=== PATIENT | male | born 1975 | race Caucasian/White ===

== ENCOUNTER 2021-06-27 15:13 | Emergency (ER) | payer BC, SELFPAY ==
--- NOTE | 2021-06-27 15:18 | ED.GENADUL_ITS ---
Discharge Plan Disposition Patient Disposition: HOME Condition: Improving Discharge Details Clinical Impression: Kidney stone Primary Care Provider: Kalee Frausto ED Provider: Nancy Morris Home Meds and New Rx's Prescriptions: New tamsulosin [Flomax] 0.4 mg capsule 0.4 mg PO DAILY Qty: 7 RF: 0 ondansetron 4 mg tablet,disintegrating 4 mg PO Q6H PRN (Reason: nausea and vomiting) Qty: 7 RF: 0 Continued aspirin 325 mg Tablet 325 mg PO PRN PRNRF: 0 Discharge Instructions Instructions: Oxycodone, Rapid Release (By mouth), Ondansetron (By mouth), Kidney Stones (ED) Additional Instructions: Your imaging is concerning for 4 mm kidney stone. Have discussed, I would like you to encourage water intake. You may use Tylenol and ibuprofen as needed for discomfort. Please take this as directed on the packaging. Your next dose ibuprofen can be taken at 1 AM. If this is unsuccessful at alleviating her discomfort, please augment with the oxycodone you are being sent home with. Please only use 1 tab every 4-6 hours as needed[address] not drive will think medication and do not drink alcohol will take this medication. To assist with passage, please take the Flomax one tablet a day until passage. You took the dosing for today. If you have recurrence of your nausea, you may use one of the Zofran dissolve under your tongue every 6 hours as needed. I would like you to follow-up with urology, below is the number for local urologist please call to schedule follow-up appointment. Please follow-up with primary care for reevaluation next 1 to 2 weeks. If develop fever/chills, increased pain, inability stay hydrated new/worsening symptoms to seek care urgently once again. Stand Alone Forms: Work Release Referrals: Moris Cali MD [ [facility] STAFF PHYSICIAN] - Kalee Frausto [Primary Care Provider] - Discharge Data Discharge Date/Time-TO BE ENTERED AT DEPARTURE: 06/27/21 18:46 Medical Decision Making <ERNST Fregoso - Last Filed: 06/28/21 16:05> This is a 46-year-old gentleman who presents with bilateral lower abdominal pain since Saturday associate with nausea and vomiting. Pain is relieved with lying flat, nothing really makes it worse. He questions if he could have had a kidney stone, noticed fleeting right-sided back pain on Saturday, possibly passed a stone. He states his abdominal pain does not feel like a stone. No bowel movement since Saturday. He does. Slightly uncomfortable and with tachycardia. Plan is to obtain IV access, give IV fluid, Zofran, morphine. Will obtain CBC, CMP, lipase, urinalysis and lactate. Believe obtaining CT imaging with contrast is necessary for further evaluation as this could be fine findings consistent with a small bowel obstruction, diverticulitis, appendicitis, atypical renal stone, etc. Medical Records Medical records reviewed: Yes I reviewed the patient's medical records. <ERNST Hale - Last Filed: 06/27/21 18:34> Care transition myself from Francesco Aguillon PA-C. Please see his initial note regarding history, presentation and exam. In brief, patient is a pleasant 46-year-old gentleman presenting today with chief complaints of abdominal discomfort and no bowel movements in the past 2 days. Patient was diffusely tender on initial exam. No previous abdominal surgeries. At the time I assumed care, labs and imaging pending. Patient has received antiemetic. Labs reviewed. White count of 20.4. Lactate 1.6. Creatinine is elevated at 1.5, I do not have a comparison for baseline. Lipase within normal limits. Patient going for CT abdomen pelvis. FINDINGS: Lungs: There is mild atelectasis within the dependent aspect of the right lower lobe. Liver: Normal. No mass. Gallbladder and bile ducts: Normal. No calcified stones. No ductal dilation. Pancreas: The pancreas is moderately atrophic but appears otherwise unremarkable without focal lesion or evidence of acute inflammation. Spleen: Normal. No splenomegaly. Adrenal glands: Normal. No mass. Kidneys and ureters: There is a 4 x 4 x 4 mm distal right ureteral stone in the right pelvis, as seen on image 798, series 5 and coronal image 97, series 6. There is mild proximal right hydroureter and right hydronephrosis. There is mild fluid stranding around the mid and proximal aspect of the right ureter as well as around the lower pole of the right kidney. There is mild urothelial thickening of the right renal pelvis as well as a portion the proximal right ureter and right renal collecting system, which can reflect urinary tract infection. Stomach and bowel: There are multiple distal colonic diverticula without evidence for acute diverticulitis. There is no evidence of small or large bowel inflammation. There is no evidence for bowel obstruction. Appendix: No evidence of appendicitis. Intraperitoneal space: Unremarkable. No free air. No significant fluid collection. Vasculature: Unremarkable. No abdominal aortic aneurysm. Lymph nodes: Unremarkable. No enlarged lymph nodes. Urinary bladder: No bladder stones are identified. Reproductive: Unremarkable as visualized. Bones/joints: There is multilevel mild degenerative change of the lower thoracic and lower lumbar spine. No acute fractures are identified. Soft tissues: There is a 2.0 x 1.8 cm fat containing umbilical hernia. IMPRESSION: 1. 4 x 4 x 4 mm obstructing distal right ureteral stone in the right pelvis, with associated mild proximal right hydroureter and right hydronephrosis. 2. Mild urothelial thickening of a portion of the right renal pelvis and proximal right ureter, which could reflect urinary tract infection. Recommend clinical correlation. 3. Small fat containing umbilical hernia. Discussed findings with the patient. He has had stones in the past, last was a few years ago. Pain is improved although increased slightly after CT. Will give Ketoralac. Discussed Flomax and will give PO dose. Patients nausea increased prior to getting above medications, will give zofran. Patient feeling significantly better. Feels ready for discharge to home at this time. Have placed patient on referral list for urology for obstructing, noninfected 4 mm right sided ureteral stone. Return precautions were discussed, in particular if he is not able to stay hydrated, had severe uncontrolled pain or evidence of infection. Encourage hydration. We discussed pain management at length. We will send home with Zofran ODT if he has recurrence of his nausea or vomiting. Also sent home with a few oxycodone. Advised that he should only take this as prescribed, not mix with alcohol and not drive will take this medication. All the questions or concerns were addressed and he is agree with this plan. HPI <ERNST Fregoso - Last Filed: 06/28/21 16:05> General Mode of arrival: ambulatory . Date/Time Provider Initiated Documentation: 06/27/21 15:18 . Limitations to Documentation: no limitations . Information obtained by: patient . HPI Narrative: Is a 46-year-old gentleman, denies significant past medical history, reports abdominal pain bilateral lower quadrants, crampy, sharp, currently a 4 out of 10 that has been going on since Saturday. He denies recent travel, bad food exposure or sick contacts. Denies fever, chest pain, shortness of breath, diarrhea, dysuria, hematuria, pain radiating down into his penis, testicles or scrotum. Patient reports the pain began Saturday, has been intermittent since then, feels the best lying flat. He states on Saturday he had fleeting pain on the right lower back, wondered if he potentially passed a kidney stone. Reports a history of uncomplicated kidney stones. Since that time has had no back pain whatsoever but the pain continues in the bilateral lower quadrants. His last bowel movement was Saturday. He denies black tarry stools or bright red blood in the stools but reports that his stools were a darker brown than usual and slightly more firm on Saturday. Denies any abdominal surgeries previously. Take aspirin today but no other medications. Also reports nausea and vomiting. Related Data Home Medications Medication Instructions Recorded Confirmed aspirin 325 mg PO PRN PRN 06/27/21 06/27/21 ondansetron 4 mg PO Q6H PRN #7 tab 06/27/21 tamsulosin [Flomax] 0.4 mg PO DAILY #7 cap 06/27/21 Previous Rx's Medication Instructions Recorded ondansetron 4 mg PO Q6H PRN #7 tab 06/27/21 tamsulosin [Flomax] 0.4 mg PO DAILY #7 cap 06/27/21 Allergies Allergy/AdvReac Type Severity Reaction Status Date / Time No Known Allergies Allergy Unverified 06/27/21 15:30 Review of Systems <ERNST Fregoso - Last Filed: 06/28/21 16:05> Constitutional Constitutional: Denies fatigue and Denies fever(s) Cardiovascular Cardiovascular: Denies chest pain and Denies dyspnea Respiratory Respiratory: Denies cough and Denies dyspnea Gastrointestinal Gastrointestinal: Reports abdominal pain, Denies melena, Denies hematochezia, Reports constipation, Denies diarrhea, Reports nausea and Reports vomiting Genitourinary Genitourinary: Denies hematuria, Denies dysuria, Denies scrotal swelling and Denies testicular pain Musculoskeletal Musculoskeletal: Reports back pain (Resolved) Integumentary/Breasts Skin/Breast: Denies rash Endocrine Endocrine: Denies fatigue PFSH <ERNST Fregoso - Last Filed: 06/28/21 16:05> All Active Problems (Updated 06/27/21 @ 18:30 by ERNST Hale) Kidney stone (Chronic) Social History Smoking/Tobacco Use Status: Never Smoking risk assessment performed?: Yes Alcohol Intake: never Substance use type: does not use Do you feel safe at home: Yes Do you feel safe in your relationship?: Yes Exam <ERNST Fregoso - Last Filed: 06/28/21 16:05> Const General: cooperative, no acute distress and other (Appears slightly uncomfortable) Orientation: alert, awake and oriented x3 HENMT Head: normal to inspection, normocephalic and atraumatic Face and sinus: normal facial exam Mouth: moist mucous membranes Eyes General: appearance normal, both eyes and all related structures Conjunctivae: conjunctivae normal Neck Neck: normal visual inspection, full ROM, trachea midline and supple Resp Effort & Inspection: normal respiratory effort and able to speak in complete sentences Auscultation: clear to auscultation bilaterally Cardio Rate: tachycardic (112) Rhythm: regular rhythm GI Inspection: normal to inspection and obesity Palpation: soft, not firm, no guarding, no pulsatile masses and tender (Diffuse lower quadrants, worse in the left side) with no rebound tenderness Auscultation: other (Decreased bowel sounds bilateral lower quadrant) Back/Spine/Pelvis Back: no CVA tenderness and No back tenderness Skin General skin exam: no rashes or lesions noted Neuro General: patient alert, patient awake, moves all extremities and no focal motor deficits Cognition: normal cognition Speech: speech normal Gait: normal gait Sensory Exam: no sensory deficits noted Psych Appearance: grossly normal Mental Status: mental status grossly normal Sign Out <ERNST Fregoso - Last Filed: 06/28/21 16:05> Sign Out Data: Sign Out Comment: Abdominal pain, nausea, vomiting, no bowel movement since Saturday. Establishing IV access, giving normal saline, Zofran, morphine, obtaining laboratory values and CT imaging of his abdomen and pelvis with contrast Last updated by Dustin Aguillon PA at 06/27/21 15:47
[2021-06-27 15:26] VITALS: BP 174/100; PULSE 117; RESP 18; TEMP 37.2; O2SAT 92
--- NOTE | 2021-06-27 15:45 | DI.CT_ITS ---
Exam(s) CT ABDOMEN PELVIS W EXAM: CT ABDOMEN PELVIS W CLINICAL HISTORY: Low abd pain, n/v/lack of BM. TECHNIQUE: Imaging Protocol: Axial computed tomography images with coronal and sagittal reformatted images were created and reviewed CONTRAST MATERIAL: Intravenous: Omnipaque 100cc Oral: None COMPARISON: No exams were available for comparison FINDINGS: VISUALIZED LUNG BASES: No nodules nor pleural effusions evident. ABDOMEN: There is no ascites. LIVER: There are no focal hepatic lesions evident. Hypodense implying steatosis. GALLBLADDER/BILIARY: No obvious gallbladder pathology. CBD is not dilated. PANCREAS: No evidence of pancreatic mass nor dilatation of the pancreatic duct. SPLEEN: Spleen is not enlarged. No obvious intrasplenic lesions. Splenic and portal veins are paten t. ADRENALS: There are no significant adrenal masses. KIDNEYS:Left kidney unremarkable. Right-sided hydronephrosis and hydroureter which is due to a 4 x 3 millimeter calculus in the right ureter lower pelvic level below the iliac vessels (series 4/image 8 1). In addition to dilatation of the right collecting system there is also stranding around the mid and proximal aspect of the right ureter as well as around lower pole the right kidney and there is ur oepithelial thickening of the right renal pelvis and proximal right ureter noted.. ABDOMINAL AORTA: Abdominal aorta is not enlarged. LYMPH NODES:There is no retroperitoneal nor paraaortic adenopathy. ABDOMINAL WALL: There is an anterior abdominal wall umbilical fat containing hernia. No bowel obstru ction. GI: There is no evidence of bowel obstruction, free air, nor abscess. PELVIS: GI: No evidence of appendicitis.Sigmoid diverticuli. No diverticulitis evident. LYMPH NODES: There is no intrapelvic nor inguinal adenopathy. REPRODUCTIVE: Prostate not enlarged. URINARY BLADDER: No calculi seen within the urinary bladder. Some uniform thickening of the bladder wall is noted. OSSEOUS: No significant osseous lesions. IMPRESSION: 1. The main finding here is a 4 millimeter obstructing calculus in the distal right ureter, above the level of the UVJ. This is associated with mild ipsilateral hydronephrosis and hydroureter. There i s some urothelial thickening in the right renal pelvis and proximal right ureter which may represent urinary tract infection. 2. Small fat containing umbilical hernia. No bowel obstruction evident. RADIATION DOSE DELIVERED: 1,528.71mGy.cm Total DLP DATA REPOSITORY: All CT scans at this facility are submitted to the National Radiology Data Registry (NRDR) Dose Index Registry (DIR) with the [employer] (ACR). RADIATION OPTIMIZATION: All CT scans at this facility use at least one of these dose optimization te chniques: automated exposure control; mA and/or kV adjustment per patient size (includes targeted exa ms where dose is matched to clinical indication); or iterative reconstruction.
[2021-06-27] MEDS: Ondansetron 4 MG/2 ML VIAL IVP ×2 (15:52→17:53)
[2021-06-27] MEDS: Normal Saline 1,000 ML 1000 ML IV (15:52)
[2021-06-27 15:54] LABS: Lactate 1.6 mmol/L (0.6-1.4)
[2021-06-27 15:59] LABS: Abs Immature Grans 0.11 10^3/uL (0.0-0.06); Absolute Basophil Count 0.06 10^3/uL (0.0-0.2); Absolute Lymphocyte Count 1.23 10^3/uL (1.2-3.4); Absolute Neutrophil Count 17.56 10^3/uL (1.2-6.7); Basophils % 0.3; HCT 46.5 % (40.0-50.0); HGB 15.7 g/dL (13.5-17.5); Immature Grans % 0.5; MCH 31.7 pg (27.0-33.0); MCHC 33.8 % (32.0-36.0); MCV 93.9 fL (80-95); MPV 9.5 fL (8.0-11.0); Monocytes % 7.5; Neutrophils % 85.7; Nucleated RBC 0 %; Platelet Count 387 10^3/uL (130-400); RBC 4.95 10^6/uL (4.36-5.78); RDW 12.6 % (11.8-14.1); RDW-SD 43.3 fL; WBC 20.49 10^3/uL (4.4-10.8)
[2021-06-27 16:00] LABS: Absolute Monocyte Count 1.54 10^3/uL (0.1-0.8)
[2021-06-27 16:18] LABS: ALT 44 U/L (16-63); AST 21 U/L (15-37); Albumin 3.7 g/dL (3.4-5.0); Alkaline Phosphatase 100 U/L (46-116); Anion Gap 11.9 mmol/L (3-11); BUN 13 mg/dL (7-18); CO2 25.1 mmol/L (21.0-32.0); CREATININE 1.5 mg/dL (0.70-1.30); Calcium 8.9 mg/dL (8.5-10.1); Chloride 100 mmol/L (98-107); Estimated GFR 49.95 (mL/min/1.73m2); Glucose 148 mg/dL (74-106); Lipase 21 U/L (73-393); Potassium 3.6 mmol/L (3.5-5.1); Sodium 137 mmol/L (136-145); Total Protein 8.1 g/dL (6.4-8.2)
[2021-06-27 16:23] LABS: Diff Comment Agrees w/ Instrument; RBC Morphology Normal
[2021-06-27] MEDS: Omnipaque 350 MG/ML 100 ML BTL IV (16:49)
--- NOTE | 2021-06-27 16:55 | NUR.NOTE ---
Nursing Note: Pt return from CT, reports pain improved to 3/10, cont. to monitor.
[2021-06-27 16:59] VITALS: BP 163/93; PULSE 94; RESP 20; O2SAT 93
--- NOTE | 2021-06-27 17:11 | NUR.NOTE ---
Nursing Note:UA collected & sent to lab, pt spouse at bedside, continue to monitor.
[2021-06-27 17:14] LABS: Bilirubin Negative (Negative); Blood Negative (Negative); Clarity Clear (Clear); Glucose Negative (Negative); Ketones Negative (Negative); Leukocyte Esterase Negative (Negative); Nitrite Negative (Negative); Specific Gravity 1.015 (1.005-1.025); pH 6.5 (5-8)
[2021-06-27 17:27] LABS: Bacteria Negative HPF (Negative); C & S Indicated? No; Crystals Negative HPF (Negative); Epithelial Cells Few HPF (Negative); Mucus Trace (Negative); RBC 0-2 HPF (0-2); WBC 0-2 HPF (0-5)
--- NOTE | 2021-06-27 17:38 | DI.VRAD_ITS ---
PROCEDURE INFORMATION: Exam: CT Abdomen And Pelvis With Contrast Exam date and time: 06/27/2021 3:48 PM Age: 46 years old Clinical indication: Other: Low abd pain, n/v/lack of bm TECHNIQUE: Imaging protocol: Computed tomography of the abdomen and pelvis with contrast. Radiation optimization: All CT scans at this facility use at least one of these dose optimization techniques: automated exposure control; mA and/or kV adjustment per patient size (includes targeted exams where dose is matched to clinical indication); or iterative reconstruction. Contrast material: OMNIPAQUE 350; Contrast volume: 100 ml; Contrast route: INTRAVENOUS (IV); COMPARISON: CR LUMBAR SPINE COMPLETE 12/07/2017 6:30 PM FINDINGS: Lungs: There is mild atelectasis within the dependent aspect of the right lower lobe. Liver: Normal. No mass. Gallbladder and bile ducts: Normal. No calcified stones. No ductal dilation. Pancreas: The pancreas is moderately atrophic but appears otherwise unremarkable without focal lesion or evidence of acute inflammation. Spleen: Normal. No splenomegaly. Adrenal glands: Normal. No mass. Kidneys and ureters: There is a 4 x 4 x 4 mm distal right ureteral stone in the right pelvis, as seen on image 798, series 5 and coronal image 97, series 6. There is mild proximal right hydroureter and right hydronephrosis. There is mild fluid stranding around the mid and proximal aspect of the right ureter as well as around the lower pole of the right kidney. There is mild urothelial thickening of the right renal pelvis as well as a portion the proximal right ureter and right renal collecting system, which can reflect urinary tract infection. Stomach and bowel: There are multiple distal colonic diverticula without evidence for acute diverticulitis. There is no evidence of small or large bowel inflammation. There is no evidence for bowel obstruction. Appendix: No evidence of appendicitis. Intraperitoneal space: Unremarkable. No free air. No significant fluid collection. Vasculature: Unremarkable. No abdominal aortic aneurysm. Lymph nodes: Unremarkable. No enlarged lymph nodes. Urinary bladder: No bladder stones are identified. Reproductive: Unremarkable as visualized. Bones/joints: There is multilevel mild degenerative change of the lower thoracic and lower lumbar spine. No acute fractures are identified. Soft tissues: There is a 2.0 x 1.8 cm fat containing umbilical hernia. IMPRESSION: 1. 4 x 4 x 4 mm obstructing distal right ureteral stone in the right pelvis, with associated mild proximal right hydroureter and right hydronephrosis. 2. Mild urothelial thickening of a portion of the right renal pelvis and proximal right ureter, which could reflect urinary tract infection. Recommend clinical correlation. 3. Small fat containing umbilical hernia. Dictated and Authenticated by: Eduardo Malcolm MD. Ordering:ALBINA Chan MD
[2021-06-27] MEDS: Ketorolac 15 MG/ML VIAL IVP (17:52)
[2021-06-27 18:00] VITALS: BP 161/90; PULSE 93; RESP 20; O2SAT 95
[2021-06-27] MEDS: Tamsulosin 0.4 MG CAPCR PO (18:00)
--- NOTE | 2021-06-27 18:27 | NUR.NOTE ---
referral to urology for kidney stone
== END 2021-06-27 18:46 | disposition home or self-care (01) ==
PROVIDERS: Physician Assistant; Emergency Provider Physician Assistant; PCP Nurse Practitioner Family
DX: N20.0 Calculus of kidney (principal); R10.30 Lower abdominal pain, unspecified; R11.2 Nausea with vomiting, unspecified
CPT/HCPCS: 36415; 80053; 83690; 96361; 96374; 96375; 96376; 99285; 74177; 81003; 81015; 83605; 85025; 99284; J1885; J2405; J3490

== ENCOUNTER 2021-06-29 18:38 | Emergency (ER) | payer BC, SELFPAY ==
[2021-06-29 18:55] VITALS: BP 142/96; PULSE 102; RESP 16; TEMP 37.2; O2SAT 90
--- NOTE | 2021-06-29 19:00 | DI.CT_ITS ---
Exam(s) CT ABDOMEN PELVIS W EXAM: CT ABDOMEN PELVIS W CLINICAL HISTORY: worsening right sided abdominal pain TECHNIQUE: Imaging Protocol: Axial computed tomography images with coronal and sagittal reformatted images were created and reviewed CONTRAST MATERIAL: Intravenous: Omnipaque 350 Contrast volume:100 mL Oral: No COMPARISON: CT CT ABDOMEN PELVIS W from 06/27/2021 FINDINGS: ABDOMEN: Lung Bases: Mild atelectasis in the lung bases. Liver: There is diffuse fatty infiltration of the liver. No measurable mass. Portal, Superior Mesenteric, and Splenic Veins: Unremarkable. Gallbladder and Biliary Tract: No radiodense calculus or dilation. Pancreas: Normal density, no abnormal calcifications or inflammatory process. Spleen: Normal. Adrenals: No masses seen. Kidneys: Normal size, contour and axis. There is again seen a 4 mm stone in the distal right ureter. It appears unchanged in location there is persistent moderate hydronephrosis. There is persistent u rothelial thickening. High-density material seen in the distal right ureter likely reflects excreted contrast. This was not present on the prior examination from 06/27/2016. There is a 2 mm nonobstru cting stone in the lower pole of the right kidney. No masses seen. Abdominal Aorta: Abdominal portion non-dilated. Bowel: No obstruction or bowel wall thickening. Appendix is unremarkable. There are few scattered div erticula in the sigmoid colon, but no evidence of acute diverticulitis. Peritoneal Cavity: No ascites, collection or mesenteric inflammatory response. No free air. Lymph Nodes: Within normal limits. Bones: Within normal limits for the patient's age. Soft Tissues: There is a fat containing umbilical hernia. PELVIS: Bladder: Symmetric distention, no gross wall thickening. Reproductive Organs: Unremarkable as visualized. Lymph Nodes: Within normal limits. Bones: Within normal limits for the patient's age. IMPRESSION: 1. Unchanged position of the 4 mm distal right ureteral stone with moderate hydronephrosis. 2. Urothelial thickening which may reflect infection/inflammation. UTI should be considered. RADIATION DOSE DELIVERED: 1,618.98mGy.cm Total DLP DATA REPOSITORY: All CT scans at this facility are submitted to the National Radiology Data Registry (NRDR) Dose Index Registry (DIR) with the [employer] (ACR). RADIATION OPTIMIZATION: All CT scans at this facility use at least one of these dose optimization te chniques: automated exposure control; mA and/or kV adjustment per patient size (includes targeted exa ms where dose is matched to clinical indication); or iterative reconstruction.
--- NOTE | 2021-06-29 19:01 | ED.GENADUL_ITS ---
Discharge Plan Disposition Patient Disposition: HOME Condition: Improving Discharge Details Clinical Impression: Right ureteral stone Primary Care Provider: Kalee Frausto ED Provider: Ketan Herbert Home Meds and New Rx's Prescriptions: New ketorolac 10 mg tablet 10 mg PO Q6H PRNQty: 12 RF: 0 hydrocodone-acetaminophen 5-300 mg tablet 1 tab PO Q8H PRNQty: 7 RF: 0 Continued aspirin 325 mg Tablet 325 mg PO PRN PRNRF: 0 tamsulosin [Flomax] 0.4 mg capsule 0.4 mg PO DAILY Qty: 7 RF: 0 ondansetron 4 mg tablet,disintegrating 4 mg PO Q6H PRN (Reason: nausea and vomiting) Qty: 7 RF: 0 Discharge Instructions Instructions: Opioid Safety (ED), Ureteral Stones (ED) Additional Instructions: No change in CT scan. Stone is still present. Hydrate and use ketorolac and acetaminophen for pain. Use hydrocodone/acetaminophen for severe pain. Contact urology tomorrow for follow up next week. Return to ED for fever, uncontrolled pain, vomiting, other concerns. Referrals: Moris Cali MD [ [facility] STAFF PHYSICIAN] - Medical Decision Making <Lalo Wu MD - Last Filed: 06/29/21 19:11> 46 yo male comes in with continued right sided pain. He was seen 2 days ago and had a ct showing a 4mm obstructing kidney stone on the right in the distal ureter. HE was discharged but states he has continued having pain. Denies fevers, chills, chest pain, shortness of breath. He is localizing the pain to the right lower abdomen and is very tender with palpation to the right lower abdomen with guarding. He states the pain was more in his back two days ago. I suspect this is still renal colic but given he had a wbc of 20 two days ago and now has rlq tenderness feel he needs repeat CT to evaluate for possible a ppendicitis vs pyelo. Will also repeat cbc, cmp and ua Differential Diagnosis Differential Diagnosis: kidney stone, pyelo Medical Records Medical records reviewed: Yes I reviewed the patient's medical records. <Ketan Herbert MD - Last Filed: 06/29/21 22:58> Patient signed out to me pending repeat CT scan. Patient seen here couple days ago and diagnosed with 4 mm right distal ureteral stone. Patient returns with continued/worsening pain. Laboratory studies show a negative urine and white count has dropped from 20 to 12. Kidney function remained stable. CT scan continues to show 4 mm stone with hydroureter/hydronephrosis essentially unchanged. Patient's pain resolved with IV ketorolac. We will continue patient on Flomax which was started previously. Will give prescriptions for oral ketorolac and oral [place] for pain relief over the weekend. State information sheet on opiate use and informed consent obtained. Refer to neurology early next week if stone does not pass. Return to ED with fever, uncontrolled pain, persistent vomiting, other concerns. Medical Records Medical records reviewed: Yes I reviewed the patient's medical records. Lab Data Lab results reviewed: Yes I reviewed the patient's lab results. HPI <Lalo Wu MD - Last Filed: 06/29/21 19:11> General Mode of arrival: ambulatory . Date/Time Provider Initiated Documentation: 06/29/21 18:40 . Limitations to Documentation: no limitations . Information obtained by: patient . History of Present Illness 46 year old M presents to the emergency department with the chief complaint of right flank pain, described as moderate, Quality is described as stabbing and aching, and is localized to the back. Patient reports no radiation. Patient started experiencing this day(s) (2) and it has been constant. No relieving factors improve symptom(s), No exacerbating factors reported . Related Data Home Medications Medication Instructions Recorded Confirmed aspirin 325 mg PO PRN PRN 06/27/21 06/29/21 ondansetron 4 mg PO Q6H PRN #7 tab 06/27/21 06/29/21 tamsulosin [Flomax] 0.4 mg PO DAILY #7 cap 06/27/21 06/29/21 hydrocodone-acetaminophen 1 tab PO Q8H PRN #7 tab 06/29/21 ketorolac 10 mg PO Q6H PRN #12 tab 06/29/21 Previous Rx's Medication Instructions Recorded ondansetron 4 mg PO Q6H PRN #7 tab 06/27/21 tamsulosin [Flomax] 0.4 mg PO DAILY #7 cap 06/27/21 hydrocodone-acetaminophen 1 tab PO Q8H PRN #7 tab 06/29/21 ketorolac 10 mg PO Q6H PRN #12 tab 06/29/21 Allergies Allergy/AdvReac Type Severity Reaction Status Date / Time No Known Allergies Allergy Unverified 06/29/21 18:58 General Stated Complaint: FlankPain VONNIE: 3 Review of Systems <Lalo Wu MD - Last Filed: 06/29/21 19:11> All systems reviewed & are unremarkable except as noted in HPI and below Constitutional Constitutional: Denies chills, Denies fever(s) and Denies weakness Cardiovascular Cardiovascular: Denies chest pain and Denies dyspnea Respiratory Respiratory: Denies cough and Denies dyspnea Musculoskeletal Musculoskeletal: Denies joint swelling Neurologic Neurologic: Denies weakness PFSH <Lalo Wu MD - Last Filed: 06/29/21 19:11> All Active Problems (Updated 06/29/21 @ 21:29 by Ketan Herbert MD) Kidney stone (Chronic) Right ureteral stone (Acute) Social History Smoking/Tobacco Use Status: Never Smoking risk assessment performed?: Yes Alcohol Intake: never Drug use: Never Substance use type: does not use Do you feel safe at home: Yes Do you feel safe in your relationship?: Yes Exam <Lalo Wu MD - Last Filed: 06/29/21 19:11> Const General: no acute distress Orientation: alert [facility] Head: normal to inspection Ears: external ears normal General nose exam: external nose normal Mouth: moist mucous membranes Eyes General: appearance normal, both eyes and all related structures Neck Neck: normal visual inspection Resp Effort & Inspection: normal respiratory effort and able to speak in complete sentences Cardio Rate: regular rate GI Palpation: soft Skin General skin exam: no rashes or lesions noted Neuro General: patient alert and patient oriented x3 Extrem General: normal to inspection Psych Mental Status: mental status grossly normal Course <Lalo Wu MD - Last Filed: 06/29/21 19:11> Vital Signs Vital signs: Vital Signs Temperature 37.2 C 06/29/21 18:55 Pulse 102 H 06/29/21 18:55 Respiratory Rate 16 06/29/21 18:55 Blood Pressure 142/96 H 06/29/21 18:55 Pulse Oximetry 90 L 06/29/21 18:55 Temperature 37.2 C 06/29/21 18:55 Temperature Source Skin 06/29/21 18:55 Pulse 102 H 06/29/21 18:55 Respiratory Rate 16 06/29/21 18:55 Respiratory Effort Non-Labored 06/29/21 18:59 Blood Pressure 142/96 H 06/29/21 18:55 Blood Pressure Position Sitting 06/29/21 18:55 Pulse Oximetry 90 L 06/29/21 18:55 Oxygen Delivery Method Room Air 06/29/21 18:55 Oxygen Flow Rate 0 06/29/21 18:55 Pain Level 7 06/29/21 18:55 Sign Out <Lalo Wu MD - Last Filed: 06/29/21 19:11> Sign Out Data: Sign Out Comment: CT two days ago showed 4mm distal right ureter stone, still having pain but now is in the right lower abdomen, rescanning, reassessment after analgesia Last updated by Lalo Wu MD at 06/29/21 19:13
[2021-06-29] MEDS: Normal Saline 1,000 ML 1000 ML IV (19:20)
[2021-06-29 19:21] LABS: Abs Immature Grans 0.11 10^3/uL (0.0-0.06); Absolute Basophil Count 0.09 10^3/uL (0.0-0.2); Absolute Eosinophil Count 0.22 10^3/uL (0.0-0.7); Absolute Lymphocyte Count 1.07 10^3/uL (1.2-3.4); Absolute Neutrophil Count 10.09 10^3/uL (1.2-6.7); Basophils % 0.7; Eosinophils % 1.8; HGB 14.4 g/dL (13.5-17.5); Immature Grans % 0.9; Lymphocytes % 8.6; MCH 31.5 pg (27.0-33.0); MCHC 32.7 % (32.0-36.0); MCV 96.3 fL (80-95); MPV 9.6 fL (8.0-11.0); Monocytes % 7.2; Neutrophils % 80.8; Nucleated RBC 0 %; Platelet Count 363 10^3/uL (130-400); RBC 4.57 10^6/uL (4.36-5.78); RDW 12.6 % (11.8-14.1); RDW-SD 44.8 fL; WBC 12.49 10^3/uL (4.4-10.8)
[2021-06-29 19:35] LABS: ALT 69 U/L (16-63); AST 49 U/L (15-37); Albumin 3.1 g/dL (3.4-5.0); Alkaline Phosphatase 128 U/L (46-116); Anion Gap 7.8 mmol/L (3-11); BUN 16 mg/dL (7-18); Bilirubin, Total 0.5 mg/dL (0.2-1.0); CO2 28.2 mmol/L (21.0-32.0); CREATININE 1.5 mg/dL (0.70-1.30); Calcium 9.1 mg/dL (8.5-10.1); Chloride 103 mmol/L (98-107); Estimated GFR 49.95 (mL/min/1.73m2); Glucose 129 mg/dL (74-106); Lipase 33 U/L (73-393); Magnesium 2.5 mg/dL (1.8-2.4); Potassium 3.9 mmol/L (3.5-5.1); Sodium 139 mmol/L (136-145); Total Protein 7.8 g/dL (6.4-8.2)
[2021-06-29] MEDS: Ketorolac 15 MG/ML VIAL IVP (19:40)
[2021-06-29] MEDS: Omnipaque 350 MG/ML 100 ML BTL IJ (19:51)
[2021-06-29 20:07] LABS: Bilirubin Negative (Negative); Blood Negative (Negative); Clarity Clear (Clear); Glucose Negative (Negative); Ketones Negative (Negative); Leukocyte Esterase Negative (Negative); Nitrite Negative (Negative); Specific Gravity 1.025 (1.005-1.025); Urobilinogen 0.2 EU/dL (Up TO 0.2); pH 5.5 (5-8)
--- NOTE | 2021-06-29 21:14 | DI.VRAD_ITS ---
PROCEDURE INFORMATION: Exam: CT Abdomen And Pelvis With Contrast Exam date and time: 06/29/2021 7:12 PM Age: 46 years old Clinical indication: Other: RT sided pain TECHNIQUE: Imaging protocol: Computed tomography of the abdomen and pelvis with contrast. COMPARISON: CT ABDOMEN PELVIS W 06/27/2021 4:48 PM FINDINGS: Liver: Normal. No mass. Gallbladder and bile ducts: Normal. No calcified stones. No ductal dilation. Pancreas: Normal. No ductal dilation. Spleen: Normal. No splenomegaly. Adrenal glands: Normal. No mass. Kidneys and ureters: Left kidney appears normal. Moderate right hydronephrosis again seen as well as surrounding stranding. Mild right hydroureter is well. Urothelial thickening also noted. There is high-density material in the distal right ureter that is favored to represent excreted contrast and was not present on recent comparison. The previously seen distal right ureteral stone remains present it again measures about 4 mm. Stomach and bowel: Unremarkable. No obstruction. No mucosal thickening. Appendix: No evidence of appendicitis. Intraperitoneal space: Unremarkable. No free air. No significant fluid collection. Vasculature: Unremarkable. No abdominal aortic aneurysm. Lymph nodes: Unremarkable. No enlarged lymph nodes. Urinary bladder: Unremarkable as visualized. Reproductive: Unremarkable as visualized. Bones/joints: Unremarkable. No acute fracture. Soft tissues: Unremarkable. IMPRESSION: Persistent moderate right hydronephrosis and evidence of UTI due to in unchanged distal right ureteral stone measuring about 4 mm. Dictated and Authenticated by: Eduin Dolan MD. Ordering:UTE May MD
== END 2021-06-29 21:44 | disposition home or self-care (01) ==
PROVIDERS: Emergency Medicine; Emergency Provider Emergency Medicine; PCP Nurse Practitioner Family
DX: N20.1 Calculus of ureter (principal)
CPT/HCPCS: 36415; 80053; 83690; 96361; 96374; 99285; 74177; 81003; 83735; 85025; 99284; J1885; J3490

== ENCOUNTER 2021-07-03 13:34 | Outpatient (REF) | payer BC, SELFPAY ==
[2021-07-03 11:57] LABS: Source Nasal/Nares
[2021-07-03 18:38] LABS: COVID-19 PCR Negative (Negative)
== END 2021-07-03 13:35 | disposition home or self-care (01) ==
LOC: LBN 13:34
PROVIDERS: PCP Nurse Practitioner Family; Visit Provider Urology
DX: Z20.822 Contact with and (suspected) exposure to COVID-19 (principal); Z01.818 Encounter for other preprocedural examination
CPT/HCPCS: 87635

== ENCOUNTER 2021-07-06 06:12 | Day surgery (SDC) | payer BC, SELFPAY ==
[2021-07-06] VITALS (8 sets, daily range): BP systolic 125–150; BP diastolic 72–96; PULSE 70–81; RESP 13–20; TEMP 36.1–37; O2SAT 93–97; BMI 40.4
--- NOTE | 2021-07-06 06:54 | HPE_ITS ---
Date of service: 07/06/21 Time of Service: 06:54 Assessment and Plan Assessment and plan (1) Right ureteral stone: Status: Acute Assessment and plan: With his stone not progressing, we will move ahead w ith ureteroscopy and stone manipulation. We discussed potential side effects including bleeding, infections and the inability to access his stone requiring a stent and return to the operating room for a staged procedure. We also discussed the possibility of a postoperative stent if we identify a ureteral injury or expect ureteral edema from the manipulation. History of Present Illness History of Present Illness Chief Complaint: right ureteral stone Narrative: This is a 46-year-old gentleman who has a history of kidney stones dating back at least 15 years. He has passed each of his previous stones and has never required surgery. He did have one of his stones analyzed, but he was never told the results so we are unsure of the stones chemical composition. He presented to the emergency room about a week ago with right lower abdominal pain. Pain was associated with nausea and vomiting. His presentation was similar to his previous stone episodes. He was not having any fever or chills. He had no gross hematuria. He was seen in the emergency room found to have a 4 mm right distal ureteral stone. He was discharged with analgesics and alpha blockers. He returned to the emergency room 2 days later with increased discomfort. The scan was repeated and the stone had not changed in position. He continues to be uncomfortable but not acutely ill. He is not having fevers or chills. He is nauseated and has not been eating well. He is not sleeping well because of the discomfort. He has no known metabolic abnormalities. He is not on frequent blood thinners. He has had no issues with anesthesia in the past. Review of Systems Narrative: No fevers or chills No vision change or dysphasia No diabetes or thyroid dysfunction Snores. No shortness of breath, cough or hemoptysis No chest pain or palpitations No nausea, vomiting, hepatitis, ulcers, jaundice, diarrhea or constipation No seizures, strokes or peripheral neuropathy No bleeding disorders or anemia No gout PFSH All Active Problems Kidney stone (Chronic) Right ureteral stone (Acute) Surgical History Hx of elbow surgery Social History Smoking/Tobacco Use Status: Never Smoking risk assessment performed?: Yes Alcohol Intake: never Drug use: Never Substance use type: does not use Do you feel safe at home: Yes Do you feel safe in your relationship?: Yes Additional Social history: Pt in room. Meds Allergies and Home Medications Allergies Allergy/AdvReac Type Severity Reaction Status Date / Time No Known Allergies Allergy Unverified 07/06/21 06:15 Home Medications Medication Instructions Recorded Confirmed Type ondansetron 4 mg PO Q6H PRN #7 tab 06/27/21 07/06/21 Rx hydrocodone-acetaminophen 1 tab PO Q8H PRN #7 tab 06/29/21 07/06/21 Rx ketorolac 10 mg PO Q6H PRN #12 tab 06/29/21 07/06/21 Rx tamsulosin 0.4 mg capsule 0.4 mg PO DAILY #7 cap 07/03/21 07/06/21 Rx ibuprofen [IBU] 400 mg PO Q6H PRN 07/06/21 07/06/21 History Exam Const General: cooperative Neck Neck: supple Resp Effort & Inspection: normal respiratory effort Auscultation: clear to auscultation bilaterally Cardio Rate: regular rate Rhythm: regular rhythm GI Palpation: soft and no masses Neuro General: patient alert, patient awake and patient oriented x3 Results Last Vital Signs Temp 37 C 07/06/21 06:21 Pulse 77 07/06/21 06:21 Resp 20 07/06/21 06:21 BP 150/92 H 07/06/21 06:21 Pulse Ox 96 07/06/21 06:21
[2021-07-06] MEDS: Lactated Ringers 1,000 ML 80 ML IV (07:04)
--- NOTE | 2021-07-06 07:14 | ANES.PREOP_ITS ---
General Info Date of Service Date Performed: 07/06/21 Height: 5 ft 9 in Weight: 124.1 kg Body Mass Index (BMI): 40.4 Surgical Procedure: Operation Date: 07/06/21 07:40 Proposed Procedures Side Surgeon p Cystoscopy/Laser/Retrograde/Ureteroscopy/Poss. Stent Right Moris Cali MD Meds Allergies and Home Medications Allergies Allergy/AdvReac Type Severity Reaction Status Date / Time No Known Allergies Allergy Unverified 07/06/21 06:15 Home Medication Medication Instructions Recorded ondansetron 4 mg PO Q6H PRN #7 tab 06/27/21 hydrocodone-acetaminophen 1 tab PO Q8H PRN #7 tab 06/29/21 ketorolac 10 mg PO Q6H PRN #12 tab 06/29/21 tamsulosin 0.4 mg capsule 0.4 mg PO DAILY #7 cap 07/03/21 ibuprofen [IBU] 400 mg PO Q6H PRN 07/06/21 Current Visit Medications: Current Medications Generic Name Dose Route Start Last Admin Trade Name Freq PRN Reason Stop Dose Admin Ringer's Solution 1,000 mls @ 80 mls/hr 07/06/21 06:00 07/06/21 07:04 IV 08/04/21 23:59 80 mls/hr INFUSION JAYME Administration Cefazolin Sodium 3,000 mg/ 100 mls @ 200 mls/hr 07/06/21 06:00 Sodium Chloride IVPB 07/06/21 16:00 PREOP JAYME IV Miscellaneous Supplies 1 each 07/06/21 06:00 Iv Access IV 08/04/21 23:59 DIRECTED JAYME Sodium Chloride 0 ml 07/06/21 06:00 Normal Saline Flush 10 Ml Syr IV 08/04/21 23:59 PRN PRN Sodium Chloride 0 ml 07/06/21 06:00 Normal Saline 10 Ml Vial IJ 08/04/21 23:59 DIRECTED PRN Sterile Water 0 ml 07/06/21 06:00 Water,Injection,Sterile 10 Ml Vial IJ 08/04/21 23:59 DIRECTED PRN PFSH Active Problems Active Problems: Problem Status Onset Code Kidney stone N20.0 Right ureteral stone N20.1 Surgical History Surgical History Hx of elbow surgery Tobacco Smoking/Tobacco Use Status: Never Alcohol Alcohol Intake: never Substance Use Substance use: Never Substance use type: does not use Vital Signs and Lab Results Vital Signs Most Recent Vital Signs in EMR: Most Recent Vital Signs Temp Pulse Resp BP Pulse Ox 37 C 77 20 150/92 H 96 07/06/21 06:21 07/06/21 06:21 07/06/21 06:21 07/06/21 06:21 07/06/21 06:21 Lab Results Blood Type / Crossmatch: No Data to Display Complete Blood Count: White Blood Count 12.49 10^3/uL (4.4-10.8) H 06/29/21 19:15 06/29/21 Red Blood Count 4.57 10^6/uL (4.36-5.78) 06/29/21 19:15 06/29/21 Hemoglobin 14.4 g/dL (13.5-17.5) 06/29/21 19:15 06/29/21 Hematocrit 44.0 % (40.0-50.0) 06/29/21 19:15 06/29/21 Platelet Count 363 10^3/uL (130-400) 06/29/21 19:15 06/29/21 Venous Blood Lactate 1.6 mmol/L (0.6-1.4) H 06/27/21 15:45 06/27/21 Complete Metabolic Panel: 2 Sodium Level 139 mmol/L (136-145) 06/29/21 19:15 06/29/21 Potassium Level 3.9 mmol/L (3.5-5.1) 06/29/21 19:15 06/29/21 Chloride Level 103 mmol/L (98-107) 06/29/21 19:15 06/29/21 Carbon Dioxide Level 28.2 mmol/L (21.0-32.0) 06/29/21 19:15 06/29/21 Blood Urea Nitrogen 16 mg/dL (7-18) 06/29/21 19:15 06/29/21 Creatinine 1.5 mg/dL (0.70-1.30) H 06/29/21 19:15 06/29/21 Estimated GFR/1.73 m2 49.95 (mL/min/1.73m2) 06/29/21 19:15 06/29/21 Magnesium Level 2.5 mg/dL (1.8-2.4) H 06/29/21 19:15 06/29/21 Calcium Level 9.1 mg/dL (8.5-10.1) 06/29/21 19:15 06/29/21 Albumin 3.1 g/dL (3.4-5.0) L 06/29/21 19:15 06/29/21 Glucose Level 129 mg/dL (74-106) H 06/29/21 19:15 06/29/21 Liver Function Panel: Alanine Aminotransferase (ALT/SGPT) 69 U/L (16-63) H 06/29/21 19:15 06/29/21 Aspartate Amino Transf (AST/SGOT) 49 U/L (15-37) H 06/29/21 19:15 06/29/21 Coagulation Panel: No Data to Display Cardiac Panel: No Data to Display Arterial Blood Gas: No Data to Display Venous Blood Gas: No Data to Display Pancreas Panel: Lipase 33 U/L (73-393) 06/29/21 19:15 06/29/21 Thyroid Panel: No Data to Display Infectious Disease: Coronavirus (COVID-19)(PCR) Negative (Negative) 07/03/21 10:30 07/03/21 Coronavirus 2019 Source Nasal/Nares 07/03/21 10:30 07/03/21 Blood Cultures: No Data to Display Toxicology Panel: No Data to Display Anesthesia Assessment and Plan Anesthesia History Personal History: No History of Anesthesia Complications Family History: No Family History of Anesthesia Complications Exercise Tolerance Exercise Tolerance: Metabolic Equivalents>4 Pertinent Negatives Pertinent Negatives: No Symptoms of GERD, No Major Cardiovascular Symptoms or Complaints, No Major Pulmonary Symptoms or Complaints and No History of CVA/TIA Cardiac & Pulmonary Exam Cardiac Exam: Normal S1/S2 Heart Sounds Pulmonary Exam: Clear Bilateral Breath Sounds Implantable Cardiac Device Does patient have a Pacemaker or an ICD?: No Airway Exam Known Difficult Airway: No Mallampati Class: 4 Mouth Opening: Normal (> 3cm) Thyromental Distance: Greater than 3 cm Neck Range of Motion: Full ROM Neck Circumference: Thick Teeth Condition: Normal Dentition ASA Classification ASA Score: ASA 3 Emergency Case?: No NPO Status NPO Status: NPO Clears >2 hours, Solids >8 hours Anesthesia Plan Resuscitation Status: Full Code Anesthesia Technique: General Anesthesia Airway Planned: LMA Monitors Used: Standard Monitors
--- NOTE | 2021-07-06 07:15 | DI.RAD_ITS ---
Exam(s) XR RETROGRADE IN OR EXAM: XR RETROGRADE IN OR CLINICAL HISTORY: Right ureteral stone. TECHNIQUE: 2D and realtime digital imaging was performed. CONTRAST MATERIAL: COMPARISON: No exams were available for comparison FINDINGS: Fluoroscopy was provided for Dr. Cali for guidance with performing retrograde exam. Fluoro time 27. 55 seconds RADIATION DOSE DELIVERED: dileep Gonzalez=12.97 mGy
[2021-07-06] MEDS: ceFAZolin 3,000 MG in Normal Saline 100 ML 200 MG IVPB (07:55)
--- NOTE | 2021-07-06 08:38 | W.PM.DSUDISC ---
Discharge Plan Disposition Patient Disposition: HOME Condition: Stable Discharge Details Attending Provider: Moris Cali Primary Care Provider: Kalee Frausto Home Meds and New Rx's Prescriptions: No Action tamsulosin [Flomax] 0.4 mg capsule 0.4 mg PO DAILY Qty: 7 RF: 0 ondansetron 4 mg tablet,disintegrating 4 mg PO Q6H PRN (Reason: nausea and vomiting) Qty: 7 RF: 0 ketorolac 10 mg tablet 10 mg PO Q6H PRNQty: 12 RF: 0 hydrocodone-acetaminophen 5-300 mg tablet 1 tab PO Q8H PRNQty: 7 RF: 0 ibuprofen [IBU] 400 mg Tablet 400 mg PO Q6H PRNRF: 0 Discharge Instructions Additional Instructions: no need to strain urine followup appt 6 to 8 weeks with renal ultrasound Activity:: Activity as Tolerated Shower/Bathe:: 24 hours Diet:: As Tolerated Discharge Orders Discharge Orders: Discharge Order (Routine); Ordered 07/06/21 Ordered By: Moris Cali DS: Diagnosis Discharge Diagnosis (1) Right ureteral stone: Status: Acute
[2021-07-06] MEDS: Omnipaque 300 MG/ML 50 ML BTL (08:42)
--- NOTE | 2021-07-06 08:43 | W.PM.OP ---
Date of service: 07/06/21 Time of Service: 08:44 Operative Note Operative Note DATE OF PROCEDURE: 07/06/21 PRE-OP DIAGNOSIS: right ureteral stone POST-OP DIAGNOSIS: same PROCEDURE: cystoscopy, right retrograde pyelogram, right ureteral dilation, right ureteroscopy with stone extraction ANESTHESIA TYPE: Local By Surgeon and General:No Airway Refer to Anesthesia Record ESTIMATED BLOOD LOSS: 10 PATHOLOGY: other (ureteral stone for chemical analysis) COMPLICATIONS: None Patient was transported to: PACU Patient's condition: stable Implants: none Indications: This is a 46-year-old gentleman who has a past history significant for kidney stones. Previously, he was able to pass his stones with conservative management. He presented to the emergency room about 10 days ago with right lower abdominal pain, nausea and vomiting. He was identified as having a right distal ureteral stone. He was treated with analgesics and alpha blockers, but his stone has not progressed. He presents now for ureteroscopy. Findings: right distal ureteral stone Procedure Description: The patient was given preoperative IV antibiotics. He was brought to the operating room on 07/06/2021. After successful induction of general anesthesia without intubation, he was placed in the dorsal lithotomy position. His genitalia was prepped and draped. 2% Xylocaine jelly was instilled into the urethra to act as a local anesthetic. A 22 [place] rigid cystoscope was passed through the urethra into the bladder. The urethra and bladder were inspected with a 30 degree lens. The pendulous, bulbar and membranous urethra was all appeared normal with no strictures. The prostatic urethra appeared normal as well with no papillary lesions in the mucosa. The bladder neck was entered and the bladder mucosa was inspected. The right ureteral orifice was identified. The orifice appeared normal with no surrounding edema. The orifice was cannulated with a 6 [place] access catheter and a retrograde film was obtained by injecting Omnipaque through the access catheter under fluoroscopic guidance. We were able to outline a filling defect in the distal ureter consistent with his stone. We then passed a guidewire through the access catheter and advanced the wire up the ureter. The cystoscope and access catheter were removed. Initial attempts at passing a semirigid ureteroscope into the ureteral orifice were not successful. I dilated the orifice and distal ureter using a UroMax balloon. The ureteroscope was then advanced up the ureter and the stone was visualized. The stone was grasped in a [place] stone basket and removed in its entirety. The stone was sent to pathology for chemical analysis. With no obvious ureteral injury identified, we elected not to place a ureteral stent. The guidewire was then removed. The patient tolerated the procedure well with no complications. He was taken to the recovery room in stable condition.
--- NOTE | 2021-07-06 09:15 | W.ANESPOSTOP ---
Postoperative Evaluation Date, Time and Location Date Performed: 07/06/21 Time Performed: 09:15 Patient Location: PACU Vital Signs Most Recent Imported Vital Signs: Most Recent Vital Signs Temp Pulse Resp BP Pulse Ox 36.2 C L 76 14 125/77 94 07/06/21 09:05 07/06/21 09:05 07/06/21 09:05 07/06/21 09:05 07/06/21 09:05 Pain Score Most Recent Pain Score: Most Recent Pain Score Pain Level 0 07/06/21 09:05 Assessment Mental Status: Awake (Alert & Oriented to Patient Baseline) Airway and Respiratory Function: Patent airway with normal (patient baseline) respiratory exam Cardiovascular Function: Hemodynamically Stable Hydration Status: Adequately Hydrated Nausea & Vomiting: No Nausea or Vomiting Pain: Pt. Denies Any Pain Peripheral Nerve Block: Patient did not receive a nerve block
[2021-07-06] MEDS: Phenazopyridine 200 MG TAB PO (09:35)
[2021-07-12 00:12] LABS: Source: Right Ureter
== END 2021-07-06 10:20 | disposition home or self-care (01) ==
PROVIDERS: PCP Nurse Practitioner Family; Visit Provider Urology
PROC: (CPT 52352; principal; 2021-07-06 07:30)
DX: N20.1 Calculus of ureter (principal)
CPT/HCPCS: 52352; 74420; 82365; J0690; J1100; J1885; J2405; J3010; Q9967

== ENCOUNTER 2023-01-29 13:07 | Emergency (ER) | payer BC, SELFPAY ==
[2023-01-29 13:13] VITALS: BP 153/71; PULSE 69; RESP 18; TEMP 36.8; O2SAT 96
--- NOTE | 2023-01-29 13:15 | DI.US_ITS ---
Exam(s) US LOWER EXTREMITY VENOUS RT EXAM: US LOWER EXTREMITY VENOUS RT CLINICAL HISTORY: swelling, trauma TECHNIQUE: Right lower extremity venous ultrasound performed using grayscale, color-flow, and spectr al Doppler analysis. COMPARISON: No exams were available for comparison FINDINGS: The right common femoral, femoral and popliteal veins demonstrate normal compressibility, augmentatio n, and color Doppler. The posterior tibial and peroneal veins are patent. The saphenofemoral junctio n is unremarkable. There is no evidence of a [place] cyst. The soft tissues are unremarkable. IMPRESSION: No evidence of a right lower extremity DVT. DATA REPOSITORY:
--- NOTE | 2023-01-29 13:15 | DI.RAD_ITS ---
Exam(s) XR KNEE RT 3V AP,LAT,SRUTHI XR TIB/FIB RT EXAM: XR KNEE RT 3V AP,LAT,SRUTHI and XR tib fib right CLINICAL HISTORY: pain post fall. TECHNIQUE: 2D digital imaging was performed of the right tib fib and knee. Five views obtained. AP , lateral and PA tunnel views were obtained. COMPARISON: There are no priors for comparison. FINDINGS: BONES: No acute fracture is present. No bony destructive lesion is seen. JOINTS: The knee is normally aligned. No joint effusion is seen. SOFT TISSUE: Normal. IMPRESSION: No acute fracture or dislocation. DATA REPOSITORY: RADIATION DOSE DELIVERED:
[2023-01-29 13:43] LABS: Abs Immature Grans 0.05 10^3/uL (0.0-0.06); Absolute Basophil Count 0.07 10^3/uL (0.0-0.2); Absolute Eosinophil Count 0.14 10^3/uL (0.0-0.7); Absolute Lymphocyte Count 1.89 10^3/uL (1.2-3.4); Absolute Neutrophil Count 4.37 10^3/uL (1.2-6.7); HCT 43.2 % (40.0-50.0); HGB 14.4 g/dL (13.5-17.5); Immature Grans % 0.7; Lymphocytes % 26.5; MCH 31.2 pg (27.0-33.0); MCHC 33.3 % (32.0-36.0); MCV 94 fL (80-95); MPV 9.3 fL (8.0-11.0); Monocytes % 8.4; Neutrophils % 61.4; Platelet Count 341 10^3/uL (130-400); RBC 4.61 10^6/uL (4.36-5.78); RDW 13.2 % (11.8-14.1); RDW-SD 45.4 fL; WBC 7.12 10^3/uL (4.4-10.8)
[2023-01-29 13:56] LABS: Anion Gap 7.1 mmol/L (3-11); BUN 14 mg/dL (7-18); CO2 28.9 mmol/L (21.0-32.0); CREATININE 0.9 mg/dL (0.70-1.30); Calcium 8.8 mg/dL (8.5-10.1); Chloride 104 mmol/L (98-107); Glucose 101 mg/dL (74-106); Potassium 4.4 mmol/L (3.5-5.1); Sodium 140 mmol/L (136-145)
--- NOTE | 2023-01-29 14:23 | ED.GENADUL_ITS ---
Discharge Plan Disposition Patient Disposition: Home Discharge Details Clinical Impression: Hematoma Primary Care Provider: Kalee Frausto ED Provider: Fátima Pearce Home Meds and New Rx's Prescriptions: Continued tamsulosin [Flomax] 0.4 mg capsule 0.4 mg PO DAILY Qty: 7 0RF Patient Comments: not taking Rx Instructions: Take until passage of stone sildenafil 50 mg tablet 50 mg PO DAILY PRN Patient Comments: not taking Rx Instructions: administer 30 minutes to 4 hours before activity albuterol sulfate 90 mcg/actuation HFA aerosol inhaler 2 puff inhalation Q6H PRN Patient Comments: not taking lisinopril-hydrochlorothiazide 20-12.5 mg tablet 1 tab PO DAILY gabapentin 100 mg capsule 100 mg PO QHS Patient Comments: nottaking ondansetron 4 mg tablet,disintegrating 4 mg PO Q6H PRN (Reason: nausea and vomiting) Qty: 7 0RF Patient Comments: not taking ketorolac 10 mg tablet 10 mg PO Q6H PRNQty: 12 0RF Patient Comments: not taking hydrocodone-acetaminophen 5-300 mg tablet 1 tab PO Q8H PRNQty: 7 0RF Patient Comments: not taking ibuprofen [IBU] 400 mg Tablet 400 mg PO Q6H PRN Patient Comments: not taking Discharge Instructions Instructions: Hematoma (ED) Additional Instructions: Elevate your leg, Tylenol as needed for pain Light massage Warm compresses as needed Return with worsening pain, increased swelling, or with any new or worsening complaints Referrals: Kalee Frausto [Primary Care Provider] - Discharge Data Discharge Date/Time-TO BE ENTERED AT DEPARTURE: 01/29/23 15:40 Medical Decision Making 47-year-old male presents with swelling and ecchymosis to his right extremity after his tractor fell over onto it. This was on Saturday. Secondary to swelling and bruising, I did order ultrasounds and x-rays in addition to light blood work, patient is hemodynamically stable, CBC within normal limits Repeat ultrasound in 1 week recommended Return precautions reviewed and patient expressed understanding, discharged home in stable condition, ambulatory with steady gait Return precautions reviewed HPI General Date/Time Provider Initiated Documentation: 01/29/23 13:18 . HPI Narrative: 47-year-old male presents with injury to right lower leg on Saturday, he tipped o eleanor on his long tractor and it landed on his leg. He denies any additional injuries. States he presents secondary to bruising and persistent pain to the affected leg. Denies chest pain, shortness of breath, dizziness, weakness, history of coagulopathy. Related Data Home Medications Medication Instructions Recorded Confirmed ondansetron 4 mg disintegrating 4 mg PO Q6H PRN nausea and 06/27/21 07/06/21 tablet vomiting #7 tabs hydrocodone 5 mg-acetaminophen 300 1 tab PO Q8H PRN #7 tabs 06/29/21 07/06/21 mg tablet ketorolac 10 mg tablet 10 mg PO Q6H PRN #12 tabs 06/29/21 07/06/21 tamsulosin 0.4 mg capsule (Flomax) 0.4 mg PO DAILY #7 caps 07/03/21 07/06/21 ibuprofen 400 mg tablet (IBU) 400 mg PO Q6H PRN 07/06/21 07/06/21 albuterol sulfate 90 mcg/actuation 2 puff inhalation Q6H PRN 10/02/22 aerosol inhaler gabapentin 100 mg capsule 100 mg PO QHS 10/02/22 lisinopril 20 1 tab PO DAILY 10/02/22 01/29/23 mg-hydrochlorothiazide 12.5 mg tablet sildenafil 50 mg tablet 50 mg PO DAILY PRN 10/02/22 Previous Rx's Medication Instructions Recorded ondansetron 4 mg disintegrating 4 mg PO Q6H PRN nausea and 06/27/21 tablet vomiting #7 tabs hydrocodone 5 mg-acetaminophen 300 1 tab PO Q8H PRN #7 tabs 06/29/21 mg tablet ketorolac 10 mg tablet 10 mg PO Q6H PRN #12 tabs 06/29/21 tamsulosin 0.4 mg capsule (Flomax) 0.4 mg PO DAILY #7 caps 07/03/21 Allergies Allergy/AdvReac Type Severity Reaction Status Date / Time No Known Allergies Allergy Unverified 01/29/23 13:20 General Stated Complaint: Orthopedic VONNIE: 3 PFSH All Active Problems (Updated 01/29/23 @ 15:13 by ERNST Crawford) Hematoma (Acute) Sleep disturbance (Acute) Sciatica (Acute) BMI 39.0-39.9,adult (Acute) GERD (gastroesophageal reflux disease) (Chronic) Insomnia (Acute) Restless legs (Acute) Hypertension (Chronic) Prediabetes (Acute) Cough (Acute) Erectile dysfunction (Acute) Screening for colon cancer (Acute) Kidney stone (Chronic) Right ureteral stone (Acute) Surgical History Hx of elbow surgery Social History Smoking/Tobacco Use Status: Never Smoking risk assessment performed?: Yes Alcohol Intake: never Drug use: Never Substance use type: does not use Do you feel safe at home: Yes Do you feel safe in your relationship?: Yes Course Vital Signs Vital signs: Vital Signs Temperature 36.8 C 01/29/23 13:13 Pulse 69 01/29/23 13:13 Respiratory Rate 18 01/29/23 13:13 Blood Pressure 153/71 H 01/29/23 13:13 Pulse Oximetry 96 01/29/23 13:13 Temperature 36.8 C 01/29/23 13:13 Pulse 69 01/29/23 13:13 Respiratory Rate 18 01/29/23 13:13 Respiratory Effort Normal, Non-Labored 01/29/23 13:13 Blood Pressure 153/71 H 01/29/23 13:13 Blood Pressure Position Sitting 01/29/23 13:13 Pulse Oximetry 96 01/29/23 13:13 Pain Level 4 01/29/23 13:13 Lab/Test Results Lab/Test Results: Laboratory Tests Range/Units 01/29/23 01/29/23 13:35 13:35 WBC (4.4-10.8) 10^3/uL 7.12 RBC (4.36-5.78) 10^6/uL 4.61 Hgb (13.5-17.5) g/dL 14.4 Hct (40.0-50.0) % 43.2 MCV (80-95) fL 94 MCH (27.0-33.0) pg 31.2 MCHC (32.0-36.0) % 33.3 RDW (11.8-14.1) % 13.2 Plt Count (130-400) 10^3/uL 341 MPV (8.0-11.0) fL 9.3 Immature Gran % 0.7 Neutrophils % 61.4 Lymphocytes % 26.5 Monocytes % 8.4 Eosinophils % 2.0 Basophils % 1.0 Nucleated RBC % (0.0-0.3) % 0.0 Absolute Neutrophils (1.2-6.7) 10^3/uL 4.37 Absolute Lymphocytes (1.2-3.4) 10^3/uL 1.89 Absolute Monocytes (0.1-0.8) 10^3/uL 0.60 Absolute Eosinophils (0.0-0.7) 10^3/uL 0.14 Absolute Basophils (0.0-0.2) 10^3/uL 0.07 Sodium (136-145) mmol/L 140 Potassium (3.5-5.1) mmol/L 4.4 Chloride (98-107) mmol/L 104 Carbon Dioxide (21.0-32.0) mmol/L 28.9 Anion Gap (3-11) mmol/L 7.1 BUN (7-18) mg/dL 14 Creatinine (0.70-1.30) mg/dL 0.9 Est GFR (CKD-EPI 2020) (mL/min/1.73m2) 104.70 Glucose (74-106) mg/dL 101 Calcium (8.5-10.1) mg/dL 8.8
[2023-01-29 15:40] VITALS: BP 136/82; PULSE 80; RESP 20; TEMP 36.8; O2SAT 99
== END 2023-01-29 15:40 | disposition home or self-care (01) ==
PROVIDERS: Emergency Provider Physician Assistant; PCP Nurse Practitioner Family
DX: R22.41 Localized swelling, mass and lump, right lower limb (principal); S80.11XA Contusion of right lower leg, initial encounter; W30.89XA Contact with other specified agricultural machinery, initial encounter; Y93.89 Activity, other specified; Y92.89 Other specified places as the place of occurrence of the external cause; Y99.9 Unspecified external cause status
CPT/HCPCS: 36415; 73562; 80048; 99284; 73590; 85025; 93971; 99283

== ENCOUNTER 2023-02-06 12:20 | Emergency (ER) | payer BC, SELFPAY ==
[2023-02-06 12:25] VITALS: BP 123/78; PULSE 76; RESP 20; TEMP 36.8; O2SAT 96
--- NOTE | 2023-02-06 13:05 | DI.RAD_ITS ---
Exam(s) XR RIBS LT PA CHEST 3V EXAM: XR RIBS LT PA CHEST 3V CLINICAL HISTORY: fall, left rib pain TECHNIQUE: 2D digital imaging was performed. Images are obtained. COMPARISON: No exams were available for comparison FINDINGS: MEDIASTINUM: Normal. HEART: Normal. PULMONARY VASCULATURE: Normal. LUNGS: Clear. PLEURAL SPACE: No pleural effusion or pneumothorax. BONE:Within normal limits for the patient's age. LEFT RIBS: Normal. OTHER FINDINGS:Normal. IMPRESSION: 1. No acute pulmonary findings. 2. Unremarkable left ribs. DATA REPOSITORY: RADIATION DOSE DELIVERED:
--- NOTE | 2023-02-06 13:44 | ED.GENADUL_ITS ---
Discharge Plan Disposition Patient Disposition: Home Condition: Stable Discharge Details Clinical Impression: Contusion of rib Primary Care Provider: Kalee Frausto ED Provider: John Cline Home Meds and New Rx's Prescriptions: New lidocaine [Lidoderm] 5 % adhesive patch,medicated 1 patch topical DAILY Qty: 15 0RF Rx Instructions: leave on most painful area for up to 12 hrs No Action tamsulosin [Flomax] 0.4 mg capsule 0.4 mg PO DAILY Qty: 7 0RF Patient Comments: not taking Rx Instructions: Take until passage of stone sildenafil 50 mg tablet 50 mg PO DAILY PRN Patient Comments: not taking Rx Instructions: administer 30 minutes to 4 hours before activity albuterol sulfate 90 mcg/actuation HFA aerosol inhaler 2 puff inhalation Q6H PRN Patient Comments: not taking lisinopril-hydrochlorothiazide 20-12.5 mg tablet 1 tab PO DAILY gabapentin 100 mg capsule 100 mg PO QHS Patient Comments: nottaking ondansetron 4 mg tablet,disintegrating 4 mg PO Q6H PRN (Reason: nausea and vomiting) Qty: 7 0RF Patient Comments: not taking ketorolac 10 mg tablet 10 mg PO Q6H PRNQty: 12 0RF Patient Comments: not taking hydrocodone-acetaminophen 5-300 mg tablet 1 tab PO Q8H PRNQty: 7 0RF Patient Comments: not taking ibuprofen [IBU] 400 mg Tablet 400 mg PO Q6H PRN Patient Comments: not taking Discharge Instructions Instructions: Rib Contusion (ED) Additional Instructions: Please return to the emergency department for any worsening symptoms. Medical Decision Making 47-year-old male presents 1 day after falling from standing onto his left side, pain to left lower ribs, no ecchymosis crepitus or deformity noted however tender along rib margin, no abdominal discomfort. Patient hemodynamically stable no respiratory distress; lungs clear speaking full sentences. X-ray negative for acute rib fracture. No evidence of pneumothorax or hemothorax. Likely rib contusion. Will treat with anti-inflammatory analgesia. Home care instructions and return precautions given HPI General Date/Time Provider Initiated Documentation: 02/06/23 12:31 . HPI Narrative: 47-year-old male presents after mechanical fall from standing yesterday, fell onto his left side onto the ground, pain to left lower ribs. Related Data Home Medications Medication Instructions Recorded Confirmed ondansetron 4 mg disintegrating 4 mg PO Q6H PRN nausea and 06/27/21 07/06/21 tablet vomiting #7 tabs hydrocodone 5 mg-acetaminophen 300 1 tab PO Q8H PRN #7 tabs 06/29/21 07/06/21 mg tablet ketorolac 10 mg tablet 10 mg PO Q6H PRN #12 tabs 06/29/21 07/06/21 tamsulosin 0.4 mg capsule (Flomax) 0.4 mg PO DAILY #7 caps 07/03/21 07/06/21 ibuprofen 400 mg tablet (IBU) 400 mg PO Q6H PRN 07/06/21 07/06/21 albuterol sulfate 90 mcg/actuation 2 puff inhalation Q6H PRN 10/02/22 aerosol inhaler gabapentin 100 mg capsule 100 mg PO QHS 10/02/22 lisinopril 20 1 tab PO DAILY 10/02/22 02/06/23 mg-hydrochlorothiazide 12.5 mg tablet sildenafil 50 mg tablet 50 mg PO DAILY PRN 10/02/22 lidocaine 5 % topical patch 1 patch topical DAILY #15 ea 02/06/23 (Lidoderm) Previous Rx's Medication Instructions Recorded ondansetron 4 mg disintegrating 4 mg PO Q6H PRN nausea and 06/27/21 tablet vomiting #7 tabs hydrocodone 5 mg-acetaminophen 300 1 tab PO Q8H PRN #7 tabs 06/29/21 mg tablet ketorolac 10 mg tablet 10 mg PO Q6H PRN #12 tabs 06/29/21 tamsulosin 0.4 mg capsule (Flomax) 0.4 mg PO DAILY #7 caps 07/03/21 lidocaine 5 % topical patch 1 patch topical DAILY #15 ea 02/06/23 (Lidoderm) Allergies Allergy/AdvReac Type Severity Reaction Status Date / Time No Known Allergies Allergy Unverified 02/06/23 12:31 General Stated Complaint: Fall/Non TraumaCriteria VONNIE: 3 Review of Systems Narrative: Review of Systems Constitutional: negative Eyes: negative ENT: negative Cardiovascular: negative Respiratory: negative Gastrointestinal: negative : negative Musculoskeletal: Chest wall pain Skin: negative Neurologic: negative Psych: negative PFSH All Active Problems (Updated 02/06/23 @ 13:46 by John Cline MD) Hematoma (Acute) Contusion of rib (Acute) Sleep disturbance (Acute) Sciatica (Acute) BMI 39.0-39.9,adult (Acute) GERD (gastroesophageal reflux disease) (Chronic) Insomnia (Acute) Restless legs (Acute) Hypertension (Chronic) Prediabetes (Acute) Cough (Acute) Erectile dysfunction (Acute) Screening for colon cancer (Acute) Kidney stone (Chronic) Right ureteral stone (Acute) Surgical History Hx of elbow surgery Social History Smoking/Tobacco Use Status: Never Smoking risk assessment performed?: Yes Alcohol Intake: never Drug use: Never Substance use type: does not use Housing: house Do you feel safe at home: Yes Do you feel safe in your relationship?: Yes Exam Narrative Exam Narrative: Physical Examination General: alert, awake, cooperative, resting comfortably, no acute distress HEENT: normocephalic, atraumatic; PERRL, EOM intact, conjunctiva normal; no nasal discharge; moist mucous membranes, oral and pharyngeal mucosa normal, tolerating secretions Neck: supple, trachea midline; full ROM Chest: normal to inspection; no ecchymosis crepitus step-off or deformity noted; does have point tenderness over margin of lower anterior lateral ribs Respiratory: normal respiratory effort, speaking in full sentences, clear to auscultation, no wheezing, rales or rhonchi Cardiac: regular rate, regular rhythm, S1S2 intact, no murmurs rubs or gallops GI: abdomen soft, non-tender, non-distended; no palpable mass or hepatosplenomegaly Skin: no lesions, rashes or trauma appreciated Neuro: AAOx3, normal speech, moving all extremities Psych: Appropriate mood and affect Course Vital Signs Vital signs: Vital Signs Temperature 36.8 C 02/06/23 12:25 Pulse 76 02/06/23 12:25 Respiratory Rate 20 02/06/23 12:25 Blood Pressure 123/78 02/06/23 12:25 Pulse Oximetry 96 02/06/23 12:25 Temperature 36.8 C 02/06/23 12:25 Temperature Source Oral 02/06/23 12:25 Pulse 76 02/06/23 12:25 Respiratory Rate 20 02/06/23 12:25 Respiratory Effort Normal, Non-Labored 02/06/23 13:19 Blood Pressure 123/78 02/06/23 12:25 Blood Pressure Position Sitting 02/06/23 12:25 Pulse Oximetry 96 02/06/23 12:25 Oxygen Delivery Method Room Air 02/06/23 12:25 Oxygen Flow Rate 0 02/06/23 12:25 Pain Level 5 02/06/23 12:25
[2023-02-06 14:06] VITALS: BP 124/77; PULSE 82; RESP 18; O2SAT 96
[2023-02-06] MEDS: Lidocaine 5% Patch 1 PATCH TP (14:08)
[2023-02-06] MEDS: Ketorolac 15 MG/ML VIAL IM (14:08)
== END 2023-02-06 14:17 | disposition home or self-care (01) ==
PROVIDERS: Emergency Provider Emergency Medicine; PCP Nurse Practitioner Family
DX: S20.212A Contusion of left front wall of thorax, initial encounter (principal); W01.10XA Fall on same level from slipping, tripping and stumbling with subsequent striking against unspecified object, initial encounter
CPT/HCPCS: 71101; 96372; 99284; J1885

== ENCOUNTER 2023-02-28 14:27 | Outpatient (CLI) | payer BC, SELFPAY ==
[2023-02-28 14:50] LABS: D-Dimer 659 ng/mlFEU (<500)
== END 2023-02-28 14:28 | disposition home or self-care (01) ==
LOC: LBO 14:27
PROVIDERS: PCP Nurse Practitioner Family; Visit Provider Family Medicine
DX: M79.89 Other specified soft tissue disorders (principal); M79.604 Pain in right leg
CPT/HCPCS: 36415; 85379

== ENCOUNTER 2023-09-05 06:32 | Day surgery (SDC) | payer BC, SELFPAY ==
--- NOTE | 2023-09-04 22:17 | W.PM.DSUDISC ---
Date of service: 09/05/23 Time of Service: 09:41 Discharge Plan Disposition Patient Disposition: Home Condition: Good Discharge Details Reason For Visit: Screening colonoscopy Attending Provider: Parth Browning Primary Care Provider: Kalee Frausto Home Meds and New Rx's Prescriptions: Discontinued bisacodyl [Dulcolax (bisacodyl)] 5 mg tablet,delayed release (DR/EC) 5 mg PO ONCE Qty: 4 0RF Rx Instructions: Colonoscopy Bowel Prep- Per Instructions polyethylene glycol 3350 17 gram/dose powder 238 g PO ONCE Qty: 238 0RF Rx Instructions: Colonoscopy Bowel Prep- Per Instructions Discharge Instructions Instructions: Diverticulosis (GEN), Diverticulosis Diet (GEN) Additional Instructions: Pietro, we were able to complete your colonoscopy today without any issues. You have some diverticulosis, which are little weak spots in the colon wall that typically accumulate as we get older. I have attached some general information here regarding typical approaches to diverticular disease. Otherwise, the screening portion of your colonoscopy was negative. That is, I saw no polyps, tumors, or anything worrisome. I recommend 10-year follow-up for your next screening colonoscopy. 1. If tolerated, consume a soft, low fiber diet for 1-2 days. [address] not drive, drink alcohol, operate machinery, make critical decisions, or do activities that require coordination or balance for 24 hours. 3. Because air was put into your colon during the procedure, expelling air from your rectum (passing gas or farting) is normal. 4. You may not have a bowel movement for 1-3 days because of the colonoscopy prep. This is normal. 5. Go directly to the emergency room if you notice any of the following: Develop chills (warm to touch), or if you have a thermometer and your temperature is above 101 Difficulty breathing or difficultly swallowing Persistent vomiting Severe abdominal pain, other than gas cramps Severe chest pain Black, tarry stools Any bleeding ? exceeding one tablespoon 6. Call your physician if the site where your intravenous was started becomes red, swollen, painful, and warm to touch. 7. Your physician has reviewed your pre-procedure medications. Please continue to take those medications as previously ordered. You will be given specific information/education regarding any changes to your medications before leaving. Activity:: Activity as Tolerated Diet:: As Tolerated Discharge Orders Discharge Orders: Discharge Order (Routine); Ordered 09/04/23 Ordered By: Parth Browning DS: Diagnosis Discharge Diagnosis (1) Encounter for screening colonoscopy: Status: Acute Asessment and Plan: Diverticulosis; otherwise negative screening colonoscopy. Recommend 10-year interval screening colonoscopies
--- NOTE | 2023-09-04 22:18 | W.COLOREPORT ---
Date of service: 09/05/23 Time of Service: 09:43 Colonoscopy Report Date of procedure: 09/05/23 Pre-op diagnosis general: Screening colonoscopy Post-op diagnosis procedure note: other (Diverticulosis) Procedure: Colonoscopy Surgeon: Parth Browning Anesthesia Type: General:No Airway Estimated blood loss (mL): 0 Pathology: none sent Complications: None Disposition: PACU Indications: Pietro is a 48-year-old male who needs his first screening colonoscopy Prep: Miralax/Dulcolax Procedure Start Time: 09:20 Procedure End Time: 09:32 Retraction Time: 9 Findings: Diverticulosis Procedure Description: After the induction of monitored anesthetic care, and with the patient in left lateral decubitus position, I began by performing an external anorectal exam.? Perineum and skin were normal, as was the anal verge.? There was no evidence of external hemorrhoids.? Next, I performed a digital rectal exam.? I did not appreciate any abnormal findings.? Next, I advanced a colonoscope into the rectal vault.? I performed retroflexion.? This was normal.? Using insufflation, I then advanced the colonoscope beyond the rectal folds and into the sigmoid colon before advancing towards the cecum.? There was sigmoid diverticulosis.? The scope was noted to be in the cecum by identification of the ileocecal valve and appendiceal orifice.? I then began withdrawing the colonoscope using repeated irrigation as necessary for full evaluation of the colonic mucosa. ?Once the scope was withdrawn to the level of the rectum, great care was taken to examine portions of the rectal folds.? Finally, the scope was withdrawn and the patient was brought to the same-day surgery recovery unit as the anesthetic wore off. ?The findings and instructions were shared with the patient prior to discharge. [place] Bowel Prep [place] Bowel Prep Right Colon: 2 Left Colon: 3 Transverse Colon: 3 Total Score: 8
[2023-09-05 06:48] VITALS: BP 152/99; PULSE 89; RESP 16; TEMP 37; O2SAT 95
[2023-09-05] MEDS: Lactated Ringers 1,000 ML 80 ML IV (07:02)
--- NOTE | 2023-09-05 08:41 | W.ANESPRE ---
General Info Date of Service Date Performed: 09/05/23 Height: 5 ft 10 in Weight: 127.006 kg Body Mass Index (BMI): 40.1 Surgical Procedure: Operation Date: 09/05/23 08:35 Proposed Procedure Side Surgeon p Colonoscopy Parth Browning MD Actual Procedure Side Surgeon p Colonoscopy Not Applicable Parth Browning MD Meds Allergies and Home Medications Allergies Allergy/AdvReac Type Severity Reaction Status Date / Time No Known Allergies Allergy Verified 09/05/23 06:42 Current Visit Medications: Current Medications Generic Name Dose Route Start Last Admin Trade Name Freq PRN Reason Stop Dose Admin Hyoscyamine Sulfate 0.125 mg 09/04/23 22:19 Hyoscyamine 0.125 Mg Sl/Oral/Chew SL 10/04/23 22:18 DIRECTED PRN Ringer's Solution 1,000 mls @ 80 mls/hr 09/05/23 06:00 09/05/23 07:02 IV 09/05/23 23:59 80 mls/hr INFUSION JAYME Administration IV Miscellaneous Supplies 1 each 09/05/23 06:00 Iv Access IV 09/05/23 23:59 DIRECTED JAYME Ondansetron HCl 4 mg 09/04/23 22:19 Ondansetron 4 Mg/2 Ml Vial IVP 10/04/23 22:18 Q4H PRN PRN Nausea / Vomiting Sodium Chloride 0 ml 09/05/23 06:00 Normal Saline Flush 10 Ml Syr IV 09/05/23 23:59 PRN PRN Sodium Chloride 0 ml 09/05/23 06:00 Normal Saline 10 Ml Vial IJ 09/05/23 23:59 DIRECTED PRN Sterile Water 0 ml 09/05/23 06:00 Water,Injection,Sterile 10 Ml Vial IJ 09/05/23 23:59 DIRECTED PRN PFSH Active Problems Active Problems: Problem Status Onset Code Encounter for screening colonoscopy Z12.11 Sleep disturbance G47.9 Sciatica M54.30 BMI 39.0-39.9,adult Z68.39 GERD (gastroesophageal reflux disease) K21.9 Insomnia G47.00 Restless legs G25.81 Hypertension I10 Prediabetes R73.03 Cough R05.9 Erectile dysfunction N52.9 Screening for colon cancer Z12.11 Kidney stone N20.0 Right ureteral stone N20.1 Surgical History Surgical History Hx of elbow surgery Tobacco Smoking/Tobacco Use Status: Never Alcohol Alcohol Intake: never Substance Use Substance use: Never Substance use type: does not use Vital Signs and Lab Results Vital Signs Most Recent Vital Signs in EMR: Most Recent Vital Signs Temp Pulse Resp BP Pulse Ox 37.0 C 89 16 152/99 H 95 09/05/23 06:48 09/05/23 06:48 09/05/23 06:48 09/05/23 06:48 09/05/23 06:48 Lab Results Blood Type / Crossmatch: No Data to Display Complete Blood Count: No Data to Display Complete Metabolic Panel: No Data to Display Liver Function Panel: No Data to Display Coagulation Panel: No Data to Display Cardiac Panel: No Data to Display Arterial Blood Gas: No Data to Display Venous Blood Gas: No Data to Display Pancreas Panel: No Data to Display Thyroid Panel: No Data to Display Infectious Disease: No Data to Display Blood Cultures: No Data to Display Toxicology Panel: No Data to Display Anesthesia Assessment and Plan Anesthesia History Personal History: No History of Anesthesia Complications Family History: No Family History of Anesthesia Complications Exercise Tolerance Exercise Tolerance: Metabolic Equivalents>4 Pertinent Negatives Pertinent Negatives: No Symptoms of GERD Cardiac & Pulmonary Exam Cardiac Exam: Normal S1/S2 Heart Sounds Pulmonary Exam: Clear Bilateral Breath Sounds Implantable Cardiac Device Does patient have a Pacemaker or an ICD?: No Airway Exam Known Difficult Airway: No Mallampati Class: 4 Mouth Opening: Normal (> 3cm) Thyromental Distance: Greater than 3 cm Neck Range of Motion: Full ROM Neck Circumference: Thick Teeth Condition: Normal Dentition ASA Classification ASA Score: ASA 2 Emergency Case?: No NPO Status NPO Status: NPO Clears >2 hours, Solids >8 hours Anesthesia Plan Resuscitation Status: Full Code Anesthesia Technique: General Anesthesia Airway Planned: Natural Airway Monitors Used: Standard Monitors
[2023-09-05 08:43] VITALS: BMI 40.1
[2023-09-05 09:39] VITALS: BP 129/92; PULSE 80; RESP 18; TEMP 36.5; O2SAT 95
--- NOTE | 2023-09-05 09:44 | W.ANESPOSTOP ---
Postoperative Evaluation Date, Time and Location Date Performed: 09/05/23 Time Performed: 09:44 Patient Location: Day Surgery Unit Vital Signs Most Recent Imported Vital Signs: Most Recent Vital Signs Temp Pulse Resp BP Pulse Ox 37.0 C 89 16 152/99 H 95 09/05/23 06:48 09/05/23 06:48 09/05/23 06:48 09/05/23 06:48 09/05/23 06:48 Pain Score Most Recent Pain Score: Most Recent Pain Score Pain Level 0 09/05/23 06:48 Assessment Mental Status: Awake (Alert & Oriented to Patient Baseline) Airway and Respiratory Function: Patent airway with normal (patient baseline) respiratory exam Cardiovascular Function: Hemodynamically Stable Hydration Status: Adequately Hydrated Nausea & Vomiting: No Nausea or Vomiting Pain: Pt. Denies Any Pain Peripheral Nerve Block: Patient did not receive a nerve block
[2023-09-05 10:09] VITALS: BP 152/104; PULSE 78; RESP 19; TEMP 36.5; O2SAT 97
== END 2023-09-05 10:23 | disposition home or self-care (01) ==
LOC: SUR 06:32
PROVIDERS: PCP Nurse Practitioner Family; Visit Provider Surgery
PROC: 0DJD8ZZ Inspection of Lower Intestinal Tract, Via Natural or Artificial Opening Endoscopic (ICD-10-PCS; CPT 45378; principal; 2023-09-05 08:30)
DX: Z12.11 Encounter for screening for malignant neoplasm of colon (principal); K21.9 Gastro-esophageal reflux disease without esophagitis; R73.03 Prediabetes; K57.30 Diverticulosis of large intestine without perforation or abscess without bleeding
CPT/HCPCS: 45378; J2001; J2704

== ENCOUNTER 2023-09-09 18:14 | Outpatient (REF) | payer BC, SELFPAY ==
[2023-09-09 18:25] LABS: Iron 64 ug/dL (65-175); Total Iron Binding Capacity 363 ug/dL (250-450); Transferrin Sat 18 % (20-55)
[2023-09-09 18:40] LABS: ALT 63 U/L (16-63); AST 30 U/L (15-37); Alkaline Phosphatase 122 U/L (46-116); Anion Gap 10.5 mmol/L (3-11); BUN 13 mg/dL (7-18); Bilirubin, Total 0.3 mg/dL (0.2-1.0); CO2 26.5 mmol/L (21.0-32.0); CREATININE 0.9 mg/dL (0.70-1.30); Calcium 9.7 mg/dL (8.5-10.1); Calculated LDL 109 mg/dL (<100); Chloride 105 mmol/L (98-107); Cholesterol 191 mg/dL (<200); Estimated GFR 104.05 (mL/min/1.73m2); Ferritin 61 ng/mL (26-388); Glucose 96 mg/dL (74-106); HDL Cholesterol 53 mg/dL (40-60); Potassium 4.1 mmol/L (3.5-5.1); Sodium 142 mmol/L (136-145); TSH (W/Ref FT4) 2.34 uIU/mL (0.36-3.74); Total Protein 7.5 g/dL (6.4-8.2); Triglyceride 145 mg/dL (<150)
== END 2023-09-09 18:15 | disposition home or self-care (01) ==
LOC: NCHCN 18:14
PROVIDERS: PCP Nurse Practitioner Family; Visit Provider Nurse Practitioner Family
DX: I10 Essential (primary) hypertension (principal); G25.81 Restless legs syndrome; Z13.220 Encounter for screening for lipoid disorders; Z68.41 Body mass index [BMI] 40.0-44.9, adult
CPT/HCPCS: 80053; 80061; 82728; 83540; 83550; 84443

== ENCOUNTER 2024-10-07 16:18 | Outpatient (REF) | payer BC, SELFPAY ==
[2024-10-07 20:02] LABS: Hemoglobin A1C 5.7 % (<5.7)
[2024-10-07 20:11] LABS: ALT 62 U/L (16-63); AST 34 U/L (15-37); Albumin 3.7 g/dL (3.4-5.0); Alkaline Phosphatase 111 U/L (46-116); Anion Gap 7.1 mmol/L (3-11); BUN 17 mg/dL (7-18); Bilirubin, Total 0.4 mg/dL (0.2-1.0); CO2 24.9 mmol/L (21.0-32.0); CREATININE 0.9 mg/dL (0.70-1.30); Calcium 9.7 mg/dL (8.5-10.1); Calculated LDL 121 mg/dL (<100); Chloride 107 mmol/L (98-107); Cholesterol 205 mg/dL (<200); Glucose 93 mg/dL (74-106); HDL Cholesterol 66 mg/dL (>or=40); Sodium 139 mmol/L (136-145); Total Protein 7.4 g/dL (6.4-8.2); Triglyceride 90 mg/dL (<150)
[2024-10-08 18:22] LABS: Hepatitis C Ab w Rflx HCV PCR Negative (Negative)
== END 2024-10-07 16:19 | disposition home or self-care (01) ==
LOC: NCHCN 16:18
PROVIDERS: PCP Nurse Practitioner Family; Visit Provider Nurse Practitioner Family
DX: Z11.59 Encounter for screening for other viral diseases (principal)
CPT/HCPCS: 80053; 80061; 86803; 83036